=== PATIENT | female | born 1970 | race Caucasian/White ===

== ENCOUNTER 2021-12-02 22:08 | Inpatient (IN) | payer BC ==
[~2021-12-02] VITALS: Ht 167.6 cm; Wt 72.7 kg
[~2021-12-02 22:08] MED LIST: FAMO-128 PO
[2021-12-02] MEDS: diatr meglu/diatrizoate 30ml oral sol.-(3 dose) bottle PO SCH (23:41)
[2021-12-03] MEDS ORDERED: potassium CL 10mEq/100ml bag 100 ML IV PRN (01:25)
[2021-12-03] MEDS ORDERED: acetaminophen 325mg tablet PO PRN (01:25)
[2021-12-03] MEDS ORDERED: magnesium 4gm in 100ml NS 100 ML IV PRN (01:25)
[2021-12-03] MEDS ORDERED: magnesium 2GM in 50ml NS 50 ML IV PRN (01:25)
[2021-12-03] MEDS: normal saline 1000ml 1,000 ML IV SCH ×4 (01:42→21:34)
[2021-12-03] MEDS: morphine 2 MG/ML inj. syringe IV PRN ×4 (04:44→20:30)
--- NOTE | 2021-12-03 06:35 | NUR ---
Receieved report from Radha
[2021-12-03] MEDS: diatr meglu/diatrizoate 30ml oral sol.-(3 dose) bottle PO SCH ×2 (07:26→10:16)
[2021-12-03] MEDS: K and/or MAG REPLACEMENT MC SCH ×2 (08:00→20:00)
[2021-12-03] MEDS: piperacillin/tazo 3.375gm/50ml 50 ML IV SCH ×2 (08:00→16:21)
[2021-12-03] MEDS: famotidine 20mg tablet PO SCH ×2 (08:00→20:32)
--- NOTE | 2021-12-03 09:40 | NUR ---
Pt arrived via gurney from ED. Pt was soiled both bowl and bladder. Cleaned and oriented to room and POC. Herve TORRES had taken report on pt from ED but turned pt over to this RN. Visitors at bedside agitating pt who is verbally abusive. CT ready for pt last dose of prep given,.
[2021-12-03 10:00] VITALS: BP 133/84
[2021-12-03] MEDS ORDERED: temazepam 15mg capsule PO PRN (17:50)
[2021-12-03 18:00] VITALS: BP 131/70
--- NOTE | 2021-12-03 18:38 | NUR ---
Problems reprioritized. Patient report given, questions answered & plan of care reviewed with BRIAN Lu.
--- NOTE | 2021-12-03 18:56 | NUR ---
Patient in room ORTHO 4011. I have received report from JARROD TORRES and had the opportunity to ask questions and assume patient care.
--- NOTE | 2021-12-03 20:00 | NUR ---
KAVYA FROM LAB HERE TO DRAW PATIENT'S LABS. SEVERAL ATTEMPTS WERE MADE THROUGHOUT EARLY SHIFT WITHOUT SUCCESS. KAVYA ATTEMPTED X3 BUT WAS NOT ABLE TO GET BLOOD INTO THE TUBES. SHE WAS ABLE TO GET FLASH, BUT WOULD NOT FILL THE TUBES. WILL PASS THIS ON TO EARLY SHIFT TO NOTIFY
[2021-12-03] MEDS: apixaban 5mg tablet PO SCH (20:33)
[2021-12-03 22:00] VITALS: BP 163/86
--- NOTE | 2021-12-03 23:40 | NUR ---
PATIENT WAS INCONTINENT OF SMALL AMT UNFORMED STOOL, SKIN CARE AND PARTIAL LINEN CHANGE DONE. NOTED PATIENT IS VERY EDEMATOUS IN HER YI AREA. LABIA FIRM AND SWOLLEN, FEET AND UP LEGS INTO THIGHS AND BUTTOCKS EDEMATOUS ALSO. REPOSITIONED PATIENT ONTO HER L SIDE WITH A PILLOW UNDER HER ABDOMEN TO SUPPORT WITHOUT PULLING AND PILLOW BETWEEN LEGS FOR COMFORT. PATIENT STATED "COMFORTABLE" AND CLOSED HER EYES. TOO EARLY FOR PAIN MED AT THIS TIME, BUT PATIENT STATED SHE WOULD BE OKAY FOR A LITTLE WHILE UNTIL I'M ABLE TO ADMINISTER MORPHINE FOR DISCOMFORT. PATIENT'S BIGGEST COMPLAINT AT THIS TIME "I JUST FEEL SO FULL, THE MILK I HAD EARLIER MADE ME FEEL OVER FULL". C/O SOME INDIGESTION EARLIER BUT WAS ABLE TO GET RELIEF FROM ELEVATING HOB MORE AND GAVE PEPCID MORE TIME TO WORK FOR HER. I DID RECEIVE AN ORDER FOR MAALOX FROM DR. ANGELO IF NEEDED, BUT DID NOT NEED TO GIVE IT.
[2021-12-04] MEDS: piperacillin/tazo 3.375gm/50ml 50 ML IV SCH ×4 (00:12→23:56)
[2021-12-04] MEDS: morphine 2 MG/ML inj. syringe IV PRN ×4 (00:13→19:54)
[2021-12-04] MEDS: normal saline 1000ml 1,000 ML IV SCH ×3 (05:22→18:59)
--- NOTE | 2021-12-04 06:41 | NUR ---
Problems reprioritized. Patient report given, questions answered & plan of care reviewed with RUCHI Valverde
[2021-12-04 07:00] VITALS: BP 135/87
[2021-12-04] MEDS: K and/or MAG REPLACEMENT MC SCH ×2 (08:00→20:00)
[2021-12-04] MEDS: apixaban 5mg tablet PO SCH ×2 (08:17→19:41)
[2021-12-04] MEDS: famotidine 20mg tablet PO SCH ×2 (08:17→19:36)
--- NOTE | 2021-12-04 09:00 | NUR ---
Per Dante in lab, the patient has been stuck multiple times and they are still unable to get labs. I have talked to Dr Jamison and have passed on that getting picc RN to do an extended iv tomorrow may be the best idea for getting blood draws. Will pass on to NOC shift that patient will need extended iv in am.
[2021-12-04 10:37] VITALS: BP 138/84
[2021-12-04 15:00] VITALS: BP 140/98
[2021-12-04] MEDS ORDERED: metoprolol tartrate 25mg tablet PO SCH (15:37)
[2021-12-04] MEDS: metoprolol tartrate 50mg tablet PO ONE ×2 (15:40→15:59)
[2021-12-04 18:00] VITALS: BP 141/85
--- NOTE | 2021-12-04 18:51 | NUR ---
Patient in room ORTHO 4011. I have received report from RUCHI Valverde and had the opportunity to ask questions and assume patient care.
--- NOTE | 2021-12-04 18:55 | NUR ---
Tabitha TORRES given report and will be resuming care. Pt awake ate some dinner. at bedside.
[2021-12-04] MEDS: metoprolol tartrate 25mg tablet PO SCH (19:42)
[2021-12-04 22:00] VITALS: BP 137/84
[2021-12-05] MEDS: morphine 2 MG/ML inj. syringe IV PRN ×2 (01:49→22:06)
[2021-12-05 06:00] VITALS: BP 127/74
--- NOTE | 2021-12-05 06:34 | NUR ---
Patient in room ORTHO 4011. I have received report from christin keith and had the opportunity to ask questions and assume patient care.
--- NOTE | 2021-12-05 06:36 | NUR ---
Problems reprioritized. Patient report given, questions answered & plan of care reviewed with MERY TORRES.
[2021-12-05] MEDS: apixaban 5mg tablet PO SCH ×2 (07:19→22:01)
[2021-12-05] MEDS: piperacillin/tazo 3.375gm/50ml 50 ML IV SCH ×3 (07:20→23:10)
[2021-12-05] MEDS: famotidine 20mg tablet PO SCH ×2 (07:20→22:00)
[2021-12-05] MEDS: metoprolol tartrate 25mg tablet PO SCH ×2 (07:20→22:00)
--- NOTE | 2021-12-05 07:43 | NUR ---
Initial: Pt admitted w/ sepsis, anemia, and s/p Douglas and small bowel resection on 11/27 per EMR. Pt had apparently left AMA on prior admit and is now back. Currently on Heart healthy diet w/ mostly 0% intake of meals. Recommend changing to Low fiber diet given recent bowel surgery and also pt has NO cardiac hx in EMR, so a heart healthy diet is not indicated. Pt may also benefit from Timothy Smoothies to assist w/ wound healing. On prior visit pt was NPO from 11/27-12/01 and likely did not have adequate intake up until now, also had visible mild-moderate temporal/buccal wasting w/ severe sternal wasting evident on recent admit, and has moderate edema. Pt meets minimum criteria for malnutrition. LBM 12/04 noted to be diarrhea. Will continue to monitor. Recs: 1. Change to Low Fiber diet given recent bowel surgery; has no cardiac hx in EMR. 2. Timothy Smoothies BIDBD; pending MD verifcation 3. If unable to tolerate PO, consider nutrition support 4. Bowel care per MD 5. Consider routine MVI for wound healing/malnutrition 5. Scaled wts Addendum: 12/05/21 at [address] Amended: Links added.
[2021-12-05] MEDS: K and/or MAG REPLACEMENT MC SCH ×3 (08:00→20:00)
[2021-12-05 08:16] LABS: BASOPHILS # (AUTO) 0.1 X10'3 (0-0.2); BASOPHILS % (AUTO) 0.3 % (0-1); EOSINOPHILS # (AUTO) 0.2 X10'3 (0-0.9); HEMATOCRIT 25.2 % (35.0-45.0); LYMPHOCYTES # (AUTO) 2.2 X10'3 (1.1-4.8); LYMPHOCYTES % (AUTO) 9.1 % (21-51); MEAN CORPUSCULAR HEMOGLOBIN 27.5 PG (27.0-31.0); MEAN CORPUSCULAR HGB CONC 31.7 g/dL (33.0-36.5); MEAN CORPUSCULAR VOLUME 86.8 FL (78-98); MEAN PLATELET VOLUME 8.2 FL (7.4-10.4); MONOCYTES # (AUTO) 1.1 X10'3 (0-0.9); MONOCYTES % (AUTO) 4.4 % (2-12); NEUTROPHILS # (AUTO) 20.8 X10'3 (1.8-7.7); NEUTROPHILS % (AUTO) 85.2 % (42-75); PLATELET COUNT 569 X10'3 (140-440); RED BLOOD COUNT 2.91 X10'6 (4.20-5.60); RED CELL DISTRIBUTION WIDTH 27.2 % (11.5-14.5); WHITE BLOOD COUNT 24.4 X10'3 (4.5-11.0)
[2021-12-05 08:17] LABS: ALANINE AMINOTRANSFERASE 14 U/L (12-78); ALBUMIN 0.7 G/DL (3.4-5.0); ALBUMIN/GLOBULIN RATIO 0.2 (1.1-1.5); ALKALINE PHOSPHATASE 103 IU/L (46-116); ANION GAP 7 (8-16); ASPARTATE AMINO TRANSFERASE 28 U/L (10-37); BILIRUBIN,TOTAL 0.4 MG/DL (0.1-1.0); BLOOD UREA NITROGEN 11 MG/DL (7-18); BUN/CREATININE RATIO 16.9 (6.6-38.0); CALCIUM 7.2 MG/DL (8.5-10.1); CHLORIDE 113 MMOL/L (99-107); CREATININE 0.65 MG/DL (0.40-0.90); GLUCOSE 88 MG/DL (70-104); SODIUM 143 MMOL/L (135-145); TOTAL CARBON DIOXIDE 23.5 MMOL/L (24-32); TOTAL PROTEIN 4.7 G/DL (6.4-8.2); eGFR > 90 ML/MIN
[2021-12-05 08:26] LABS: POTASSIUM 2.9 MMOL/L (3.5-5.1)
[2021-12-05 09:56] VITALS: BP 120/66
[2021-12-05] MEDS ORDERED: furosemide 10 MG/1 ML 10ml inj IV ONE ×2 (10:10→11:10)
--- NOTE | 2021-12-05 10:53 | NUR ---
Page Sent PAGER ID: [phone] MESSAGE: [id number] Cleve. pt K is 2.9 do you stillw ant me to give Lasix??? I am going to replace per protocol. please let me know. osman [id number]
[2021-12-05] MEDS ORDERED: magnesium 4gm in 100ml NS 100 ML IV PRN (10:55)
[2021-12-05] MEDS ORDERED: potassium CL 10mEq/100ml bag 100 ML IV PRN (10:55)
[2021-12-05] MEDS ORDERED: magnesium Cl slow-release 64mg tablet PO PRN (10:55)
[2021-12-05] MEDS ORDERED: magnesium 2GM in 50ml NS 50 ML IV PRN (10:55)
[2021-12-05] MEDS ORDERED: POTASSIUM BICARB 20meq eff tab 20 MEQ TABLET.EFF PO PRN (10:55)
--- NOTE | 2021-12-05 11:37 | NUR ---
Page Sent PAGER ID: [phone] MESSAGE: [phone] b Cleve, do you want pt to still receive 60 mg one dose lasix with her K of 2.9? I will replace K and I will wait to hear from you about giving Lasix. osman [id number]
--- NOTE | 2021-12-05 11:46 | NUR ---
Page Sent PAGER ID: [phone] MESSAGE: [phone] b Cleve, do you want pt to still receive 60 mg one dose lasix with her K of 2.9? I will replace K and I will wait to hear from you about giving Lasix. osman [id number]
[2021-12-05] MEDS: POTASSIUM BICARB 20meq eff tab 20 MEQ TABLET.EFF PO PRN ×3 (13:09→22:54)
[2021-12-05] MEDS: JUVEN Smoothie Arginine/Glut./Ca2+Bmb (Juven 19.3pkt) 240ml cup PO SCH (17:35)
--- NOTE | 2021-12-05 17:38 | NUR ---
Page Sent PAGER ID: [phone] MESSAGE: [phone] Cleve, pt hr was 120s at vitals check. osman [id number]
[2021-12-05 18:00] VITALS: BP 105/73
--- NOTE | 2021-12-05 18:10 | NUR ---
Problems reprioritized. Patient report given, questions answered & plan of care reviewed with kerrie keith.
[2021-12-05 22:00] VITALS: BP 116/60
--- NOTE | 2021-12-05 22:17 | NUR ---
MESSAGE: [id number] MARSHALLROSE RAMSEY 51 ABD PAIN. HAVING HARD TIME BREATHING. REQUIRING 5L FROM RA. HR 130. CHEST XRAY? CAN SHE HAVE BREATHING TX? C/O CHEST PAIN. EKG-SINUS TACHY. DO YOU WANT TROPONIN? THANK YOU. 1879 SILVINA
[2021-12-05] MEDS ORDERED: ipratropium/albuterol 3ml nebule NEB PRN (22:20)
[2021-12-05 23:10] LABS: ABG BASE EXCESS 3.5 mmol/L (-2.0-2.0); ABG OXYGEN SATURATION 91.3 % (94-97); ABG PCO2 (T) 30.1 mmHg (32.0-45.0); ABG PO2 (T) 59.6 mmHg (75.0-100.0); FCOHb 1.2 % (0.0-3.9); FLOW 5 L/min; FMetHb 0.3 % (0.0-1.5); FO2Hb 89.9 % (94-97); PATIENT TEMPERATURE 36.7; TOTAL HEMOGLOBIN 7.8 G/dl (12.0-16.0)
[2021-12-05] MEDS: ondansetron/PF 4mg/2ml inj IV PRN (23:10)
[2021-12-05] MEDS ORDERED: furosemide 40mg/4ml inj IV ONE (23:20)
--- NOTE | 2021-12-05 23:24 | NUR ---
INFROMED GARIBAY OF ABG RESULT. RT SUGGESTED TO PUT NON-REBREATHER. AND MD OKED. HER LUNG SOUND CONGESTED. ORDERED 40MG LASIX NOW.
[2021-12-05 23:30] VITALS: BP 132/51
--- NOTE | 2021-12-05 23:50 | NUR ---
MESSAGE: [phone] AZAELNayana ROSE 51 TROPONIN IS 3190 NOW. HR STILL HIGH 132. DID EKG. CAN I SHOW IT TO YOU? PLEASE TELL ME THE LOCATION. THANK YOU 2049 SILVINA
[2021-12-06] VITALS (21 sets, daily range): BP systolic 88–126; BP diastolic 50–70
--- NOTE | 2021-12-06 | NUR ---
PT WAS NOT FINISH POTASSIUM DRINK.
[2021-12-06] MEDS ORDERED: heparin 10,000 units/1 ML INJ IV ONE (00:45)
[2021-12-06] MEDS ORDERED: heparin 10,000 units/1 ML INJ IV PRN (00:45)
[2021-12-06 00:48] LABS: EOSINOPHILS # (AUTO) 0.1 X10'3 (0-0.9); HEMOGLOBIN 9.2 g/dl (12.0-16.0); LYMPHOCYTES % (AUTO) 5.2 % (21-51); MONOCYTES # (AUTO) 0.9 X10'3 (0-0.9)
[2021-12-06 00:50] LABS: BASOPHILS # (AUTO) 0.1 X10'3 (0-0.2); BASOPHILS % (AUTO) 0.3 % (0-1); EOSINOPHILS % (AUTO) 0.2 % (0-6); HEMATOCRIT 28.6 % (35.0-45.0); LYMPHOCYTES # (AUTO) 1.7 X10'3 (1.1-4.8); MEAN CORPUSCULAR HEMOGLOBIN 27.4 PG (27.0-31.0); MEAN CORPUSCULAR HGB CONC 32.2 g/dL (33.0-36.5); MEAN CORPUSCULAR VOLUME 85.1 FL (78-98); MEAN PLATELET VOLUME 7.8 FL (7.4-10.4); MONOCYTES % (AUTO) 2.7 % (2-12); NEUTROPHILS # (AUTO) 30.4 X10'3 (1.8-7.7); NEUTROPHILS % (AUTO) 91.6 % (42-75); PLATELET COUNT 698 X10'3 (140-440); RED BLOOD COUNT 3.36 X10'6 (4.20-5.60); RED CELL DISTRIBUTION WIDTH 27.6 % (11.5-14.5)
--- NOTE | 2021-12-06 00:53 | NUR ---
pharmacy caes called and inform that pt took eliquis tonight so not to start heparin drip till 0400. and no bolus. Pharmacy will place order starting at 0400.
[2021-12-06 00:58] LABS: WHITE BLOOD COUNT 33.2 X10'3 (4.5-11.0)
[2021-12-06 01:05] LABS: ALANINE AMINOTRANSFERASE 18 U/L (12-78); ALBUMIN 0.8 G/DL (3.4-5.0); ALBUMIN/GLOBULIN RATIO 0.2 (1.1-1.5); ALKALINE PHOSPHATASE 124 IU/L (46-116); ANION GAP 9 (8-16); ASPARTATE AMINO TRANSFERASE 27 U/L (10-37); BILIRUBIN,TOTAL 0.5 MG/DL (0.1-1.0); BLOOD UREA NITROGEN 10 MG/DL (7-18); BUN/CREATININE RATIO 13.5 (6.6-38.0); CALCIUM 7.5 MG/DL (8.5-10.1); CHLORIDE 107 MMOL/L (99-107); CREATININE 0.74 MG/DL (0.40-0.90); GLUCOSE 117 MG/DL (70-104); SODIUM 141 MMOL/L (135-145); TOTAL CARBON DIOXIDE 25.1 MMOL/L (24-32); TOTAL PROTEIN 5.9 G/DL (6.4-8.2); eGFR 83 ML/MIN
[2021-12-06 01:09] LABS: POTASSIUM 2.9 MMOL/L (3.5-5.1)
--- NOTE | 2021-12-06 01:16 | NUR ---
MESSAGE: [id number] liliane Santana. critical WBC 33.2. She is getting Zosyn. blood culture is already ordered. thank you. [phone] Annabelle
[2021-12-06 01:21] LABS: TOTAL CELLS COUNTED 100
[2021-12-06 01:22] LABS: ANISOCYTOSIS 3+; HYPOCHROMASIA 3+; MICROCYTOSIS 1+; PLATELET ESTIMATE INCREASED; TARGET CELLS 2+
[2021-12-06 01:23] LABS: APTT 29 SECONDS (22-32)
--- NOTE | 2021-12-06 02:56 | NUR ---
MESSAGE: [id number] ROSE SIBLEY 51 CRITICAL TROPONIN 2704 NOW. CAN I SHOW EKG? PLEASE TELL ME YOUR LOCATION. THANK YOU. 6711 SILVINA
[2021-12-06] MEDS ORDERED: HEPARIN SOD,PORK IN 0.45% NACL 250 ML IV SCH (04:00)
[2021-12-06] MEDS: POTASSIUM BICARB 20meq eff tab 20 MEQ TABLET.EFF PO PRN (05:29)
[2021-12-06 06:48] LABS: BASOPHILS # (AUTO) 0.1 X10'3 (0-0.2); BASOPHILS % (AUTO) 0.4 % (0-1); EOSINOPHILS % (AUTO) 0.1 % (0-6); LYMPHOCYTES # (AUTO) 2.2 X10'3 (1.1-4.8); LYMPHOCYTES % (AUTO) 7.9 % (21-51); MEAN CORPUSCULAR HEMOGLOBIN 27.8 PG (27.0-31.0); MEAN CORPUSCULAR HGB CONC 32.3 g/dL (33.0-36.5); MEAN CORPUSCULAR VOLUME 85.9 FL (78-98); MONOCYTES % (AUTO) 3.4 % (2-12); NEUTROPHILS % (AUTO) 88.2 % (42-75); PLATELET COUNT 544 X10'3 (140-440); RED BLOOD COUNT 2.35 X10'6 (4.20-5.60); RED CELL DISTRIBUTION WIDTH 27.5 % (11.5-14.5)
[2021-12-06 07:10] LABS: WHITE BLOOD COUNT 28.4 X10'3 (4.5-11.0)
[2021-12-06 07:11] LABS: HEMATOCRIT 20.1 % (35.0-45.0); HEMOGLOBIN 6.5 g/dl (12.0-16.0)
[2021-12-06] MEDS: JUVEN Smoothie Arginine/Glut./Ca2+Bmb (Juven 19.3pkt) 240ml cup PO SCH ×2 (07:30→18:03)
--- NOTE | 2021-12-06 07:40 | NUR ---
Pt looks very poorly this morning. Received report from night charge Mary at 0620 re: events last night. Pt now with SBP 88, HR 100 sinus rhythm, on venti mask at 40%. mild SOB. Pt weak, "tired" and moaning but denies pain. Pale. HH now 6.10/01. K 2.9. troponin 2141. moist cough, lungs coarse crackles Dr Paul notified of last nights events, current status. Will call rapid response per his request. He is on his way up to patient room.
--- NOTE | 2021-12-06 07:48 | NUR ---
per charge nurse she is paging dr to let him know about pt status. her low k, needing blood, and having low bp with desats
[2021-12-06] MEDS ORDERED: furosemide 40mg/4ml inj IV SCH (08:00)
[2021-12-06] MEDS: metoprolol tartrate 25mg tablet PO SCH ×2 (08:00→20:53)
[2021-12-06] MEDS: K and/or MAG REPLACEMENT MC SCH ×4 (08:00→20:56)
[2021-12-06 08:29] LABS: ANISOCYTOSIS 3+; NUCLEATED RED BLOOD CELLS 2 /100WBC (0-0); PLATELET ESTIMATE INCREASED; TARGET CELLS 2+; TOTAL CELLS COUNTED 100
[2021-12-06 08:30] LABS: HYPOCHROMASIA 1+
[2021-12-06] MEDS ORDERED: PERFLUTREN PROTEIN-A MICROSPHR (Optison) 0.22 MG/ML 3ML VIAL IV ONE (08:30)
[2021-12-06] MEDS ORDERED: iohexol 350MG/ML 100ml bottle IV ONE (08:31)
--- NOTE | 2021-12-06 08:58 | NUR ---
PAGER ID: [phone] MESSAGE: [phone] chichi Poon is allergic to iv contrast. they are unable to do CT. osman [id number]
[2021-12-06] MEDS: piperacillin/tazo 3.375gm/50ml 50 ML IV SCH (09:53)
[2021-12-06] MEDS: famotidine 20mg tablet PO SCH ×2 (09:53→20:53)
--- NOTE | 2021-12-06 10:15 | NUR ---
Problems reprioritized. Patient report given, questions answered & plan of care reviewed with kisha keith.
--- NOTE | 2021-12-06 10:38 | NUR ---
taken by wound care yesterday Addendum: 12/06/21 at 1039 by Christian Marr RN Amended: Links added.
--- NOTE | 2021-12-06 11:07 | NUR ---
pts daughter called and she was upset, i talked to my director he said she can look up the number to [facility] if she wishes to call them and he is aware of the situation as well as my charge nurse, she was transferred down to the nursing supervisor dairy sanitation. supervisor dairy sanitation said she had talked to her and thinks she got things figured out with her. i discussed with the pt and her that is at the bedside, what her daughter had expressed to me, the pt expressed that she was receiving great care and appreciated everything that we have been doing for her and the stated he agreed. she stated she just wants to get better and be able to go home. they both understood what was going on with her and that she is getting transferred to the ICU to receive further care.
--- NOTE | 2021-12-06 11:52 | NUR ---
Page Sent PAGER ID: [phone] MESSAGE: [phone] b Cleve pt troponin 2039, pt is now in ICU
--- NOTE | 2021-12-06 12:12 | NUR ---
pt was transferred to icu, nurse jeancarlos was aware of pt needing blood and K, along with the management of the heparin. report already given.
--- NOTE | 2021-12-06 18:35 | NUR ---
I have received report and assumed care of pt. Pt is a 51 year old female who had recent surgery for adhesions, went AMA on 11/27 only to return a few days later with abdominal pain, pt has a history of methamphetamine abuse, on 12/06 pt was a rapid response d/t increase in o2 requirements, Pt resting in bed, at bedside, assessment complete, pt incont of stool, pt cleaned, barrier cream applied, bilateral heal protectors applied as pt has dark goyo soft heals,
[2021-12-06] MEDS: furosemide 40mg/4ml inj IV SCH (20:52)
[2021-12-06] MEDS: ondansetron/PF 4mg/2ml inj IV PRN (20:52)
[2021-12-06] MEDS: pantoprazole 40MG/NS 100ML BAG 100 ML IV SCH (20:56)
[2021-12-06 21:35] LABS: BASOPHILS # (AUTO) 0.2 X10'3 (0-0.2); BASOPHILS % (AUTO) 0.8 % (0-1); EOSINOPHILS # (AUTO) 0.2 X10'3 (0-0.9); EOSINOPHILS % (AUTO) 0.8 % (0-6); HEMATOCRIT 27.8 % (35.0-45.0); HEMOGLOBIN 9.1 g/dl (12.0-16.0); LYMPHOCYTES # (AUTO) 2.3 X10'3 (1.1-4.8); LYMPHOCYTES % (AUTO) 9.7 % (21-51); MEAN CORPUSCULAR HEMOGLOBIN 28.3 PG (27.0-31.0); MEAN CORPUSCULAR HGB CONC 32.7 g/dL (33.0-36.5); MEAN CORPUSCULAR VOLUME 86.5 FL (78-98); MEAN PLATELET VOLUME 8.2 FL (7.4-10.4); MONOCYTES # (AUTO) 1.1 X10'3 (0-0.9); MONOCYTES % (AUTO) 4.6 % (2-12); NEUTROPHILS # (AUTO) 19.9 X10'3 (1.8-7.7); NEUTROPHILS % (AUTO) 84.1 % (42-75); PLATELET COUNT 489 X10'3 (140-440); RED BLOOD COUNT 3.21 X10'6 (4.20-5.60); RED CELL DISTRIBUTION WIDTH 21.9 % (11.5-14.5); WHITE BLOOD COUNT 23.6 X10'3 (4.5-11.0)
[2021-12-06 22:21] LABS: TOTAL CELLS COUNTED 100
[2021-12-06 22:22] LABS: ANISOCYTOSIS 3+; HYPOCHROMASIA 2+; PLATELET ESTIMATE INCREASED; TARGET CELLS 2+
[2021-12-06 22:23] LABS: LARGE PLATELETS FEW; POLYCHROMASIA 1+
[2021-12-06 22:24] LABS: SMUDGE CELLS 2+
[2021-12-07] VITALS (24 sets, daily range): BP systolic 90–126; BP diastolic 52–72
[2021-12-07] MEDS: piperacillin/tazo 3.375gm/50ml 50 ML IV SCH ×3 (01:47→17:01)
[2021-12-07] MEDS: furosemide 40mg/4ml inj IV SCH ×3 (04:00→17:01)
[2021-12-07 06:10] LABS: BASOPHILS # (AUTO) 0.1 X10'3 (0-0.2); BASOPHILS % (AUTO) 0.2 % (0-1); EOSINOPHILS # (AUTO) 0.1 X10'3 (0-0.9); EOSINOPHILS % (AUTO) 0.4 % (0-6); HEMATOCRIT 26.2 % (35.0-45.0); LYMPHOCYTES # (AUTO) 2.4 X10'3 (1.1-4.8); LYMPHOCYTES % (AUTO) 8.8 % (21-51); MEAN CORPUSCULAR HGB CONC 34.3 g/dL (33.0-36.5); MEAN CORPUSCULAR VOLUME 84.4 FL (78-98); MEAN PLATELET VOLUME 8.3 FL (7.4-10.4); MONOCYTES # (AUTO) 1.2 X10'3 (0-0.9); MONOCYTES % (AUTO) 4.3 % (2-12); NEUTROPHILS # (AUTO) 23.8 X10'3 (1.8-7.7); NEUTROPHILS % (AUTO) 86.3 % (42-75); PLATELET COUNT 524 X10'3 (140-440); RED BLOOD COUNT 3.11 X10'6 (4.20-5.60); RED CELL DISTRIBUTION WIDTH 21.3 % (11.5-14.5)
--- NOTE | 2021-12-07 06:12 | NUR ---
report given to rec rn plan of care reviewed
[2021-12-07 06:22] LABS: WHITE BLOOD COUNT 27.6 X10'3 (4.5-11.0)
[2021-12-07 06:23] LABS: ALANINE AMINOTRANSFERASE 8 U/L (12-78); ALBUMIN 0.6 G/DL (3.4-5.0); ALBUMIN/GLOBULIN RATIO 0.1 (1.1-1.5); ALKALINE PHOSPHATASE 83 IU/L (46-116); ANION GAP 4 (8-16); ASPARTATE AMINO TRANSFERASE 21 U/L (10-37); BILIRUBIN,TOTAL 0.5 MG/DL (0.1-1.0); BLOOD UREA NITROGEN 9 MG/DL (7-18); BUN/CREATININE RATIO 13.8 (6.6-38.0); CALCIUM 7.2 MG/DL (8.5-10.1); CHLORIDE 107 MMOL/L (99-107); CREATININE 0.65 MG/DL (0.40-0.90); GLUCOSE 94 MG/DL (70-104); SODIUM 141 MMOL/L (135-145); TOTAL CARBON DIOXIDE 30.1 MMOL/L (24-32); TOTAL PROTEIN 4.7 G/DL (6.4-8.2); eGFR > 90 ML/MIN
[2021-12-07 06:26] LABS: POTASSIUM 2.8 MMOL/L (3.5-5.1)
[2021-12-07] MEDS: K and/or MAG REPLACEMENT MC SCH ×3 (07:00→20:55)
[2021-12-07] MEDS: JUVEN Smoothie Arginine/Glut./Ca2+Bmb (Juven 19.3pkt) 240ml cup PO SCH ×2 (08:11→17:30)
[2021-12-07] MEDS: POTASSIUM BICARB 20meq eff tab 20 MEQ TABLET.EFF PO PRN ×2 (08:35→21:08)
[2021-12-07] MEDS: metoprolol tartrate 25mg tablet PO SCH ×2 (08:35→20:00)
[2021-12-07] MEDS: famotidine 20mg tablet PO SCH (08:35)
[2021-12-07] MEDS: pantoprazole 40MG/NS 100ML BAG 100 ML IV SCH ×2 (08:35→21:08)
[2021-12-07] MEDS: morphine 2 MG/ML inj. syringe IV PRN (08:48)
[2021-12-07 09:58] LABS: ANISOCYTOSIS 3+; PLATELET ESTIMATE INCREASED; TARGET CELLS 2+; TOTAL CELLS COUNTED 100
[2021-12-07 10:25] LABS: CHOL/HDL RATIO 4.1 (0.00-4.99); CHOLESTEROL 57 MG/DL (0-200); HDL CHOLESTEROL 14 MG/DL (35-60); LDL CHOLESTEROL 28 MG/DL (50-100); TRIGLYCERIDES 88 MG/DL (20-135)
[2021-12-07 13:03] LABS: HEMATOCRIT 35.9 % (35.0-45.0); HEMOGLOBIN 11.5 g/dl (12.0-16.0); MEAN CORPUSCULAR HEMOGLOBIN 28.2 PG (27.0-31.0); MEAN CORPUSCULAR VOLUME 88.2 FL (78-98); MEAN PLATELET VOLUME 7.9 FL (7.4-10.4); PLATELET COUNT 532 X10'3 (140-440); RED BLOOD COUNT 4.07 X10'6 (4.20-5.60); RED CELL DISTRIBUTION WIDTH 22.7 % (11.5-14.5)
[2021-12-07 13:07] LABS: WHITE BLOOD COUNT 32.2 X10'3 (4.5-11.0)
--- NOTE | 2021-12-07 13:14 | NUR ---
PRESSURE ULCER EDUCATION: DEFINITION: A pressure ulcer is an area of skin that breaks down when you stay in one position too long. The constant pressure against the skin reduces the blood flow to that area and the affected tissue dies. CAUSES: "Being bedridden or in a wheelchair "Fragile skin "Having a chronic condition, such as diabetes or vascular disease "Inability to move certain parts of your body without assistance "Older age "Incontinence of urine or stool SYMPTOMS: "A reddened area that DOES NOT turn white when pressed on - this can be the beginning of a pressure ulcer "A blister, deep sore or a crater - these can be advanced pressure ulcers FIRST AID: "Relieve the pressure on this area "Keep the area clean and dry "Call your primary doctor if you see any of the above symptoms "DO NOT massage the area "DO NOT use a donut shaped or ring shaped pillow- these actually interfere with the blood flow and cause complications PREVENTION: "Check for pressure ulcers everyday "Change position at least every two hours to relieve pressure "Use items that help relieve pressure- pillows, sheepskin, foam padding, and powders. "Keep skin clean and dry "Eat healthy well balanced meals "Exercise daily IF YOU SEE ANY OF THESE SYMPTOMS WHILE IN THE HOSPITAL - TELL YOUR NURSE IMMEDIATELY. IF YOU SEE ANY OF THESE SYMPTOMS WHILE AT HOME OR HAVE ANY QUESTIONS OR CONCERNS ABOUT PRESSURE ULCERS - CALL YOUR PRIMARY DOCTOR IMMEDIATELY. Addendum: 12/07/21 at 1315 by Tabitha Victoria LVN Amended: Links added.
--- NOTE | 2021-12-07 18:30 | NUR ---
I have received report and assumed care of pt, pt resting in bed rise and fall of chest cavity equile and symmetrical, pt denies needs at this time, BCNA in place for pts safety.
[2021-12-07] MEDS: enoxaparin 40mg/0.4ml syringe SUBCUT SCH (21:07)
[2021-12-07] MEDS: NYSTATIN CREAM - 30GM TUBE TP SCH (21:08)
[2021-12-07] MEDS: ondansetron/PF 4mg/2ml inj IV PRN (21:16)
[2021-12-07 23:18] LABS: HEMOGLOBIN 9.5 g/dl (12.0-16.0)
[2021-12-07 23:19] LABS: MEAN CORPUSCULAR HEMOGLOBIN 28.5 PG (27.0-31.0); PLATELET COUNT 597 X10'3 (140-440); RED BLOOD COUNT 3.33 X10'6 (4.20-5.60); RED CELL DISTRIBUTION WIDTH 21.6 % (11.5-14.5); WHITE BLOOD COUNT 23.2 X10'3 (4.5-11.0)
[2021-12-07 23:34] LABS: ALANINE AMINOTRANSFERASE 9 U/L (12-78); ALBUMIN 0.7 G/DL (3.4-5.0); ALBUMIN/GLOBULIN RATIO 0.2 (1.1-1.5); ALKALINE PHOSPHATASE 94 IU/L (46-116); ANION GAP 3 (8-16); ASPARTATE AMINO TRANSFERASE 17 U/L (10-37); BILIRUBIN,TOTAL 0.4 MG/DL (0.1-1.0); BLOOD UREA NITROGEN 8 MG/DL (7-18); BUN/CREATININE RATIO 13.8 (6.6-38.0); CALCIUM 7.1 MG/DL (8.5-10.1); CHLORIDE 101 MMOL/L (99-107); CREATININE 0.58 MG/DL (0.40-0.90); GLUCOSE 126 MG/DL (70-104); POTASSIUM 3.1 MMOL/L (3.5-5.1); SODIUM 137 MMOL/L (135-145); TOTAL CARBON DIOXIDE 33.4 MMOL/L (24-32); eGFR > 90 ML/MIN
[2021-12-08] VITALS (18 sets, daily range): BP systolic 94–129; BP diastolic 50–72
[2021-12-08] MEDS: furosemide 40mg/4ml inj IV SCH
--- NOTE | 2021-12-08 03:00 | NUR ---
report given to rec rn plan of care reviewed
--- NOTE | 2021-12-08 03:00 | NUR ---
Patient in room CICU 2006. I have received report from Tierney Torres RN and had the opportunity to ask questions and assume patient care. Pt c/o nausea, Zofran given per orders.
[2021-12-08] MEDS: ondansetron/PF 4mg/2ml inj IV PRN (03:10)
[2021-12-08] MEDS: POTASSIUM BICARB 20meq eff tab 20 MEQ TABLET.EFF PO PRN (03:10)
[2021-12-08] MEDS: piperacillin/tazo 3.375gm/50ml 50 ML IV SCH ×3 (03:10→16:09)
[2021-12-08 06:11] LABS: BASOPHILS % (AUTO) 0.2 % (0-1); EOSINOPHILS # (AUTO) 0.2 X10'3 (0-0.9); HEMATOCRIT 26.9 % (35.0-45.0); LYMPHOCYTES # (AUTO) 1.7 X10'3 (1.1-4.8); LYMPHOCYTES % (AUTO) 8.1 % (21-51); MEAN CORPUSCULAR HEMOGLOBIN 28.2 PG (27.0-31.0); MEAN CORPUSCULAR HGB CONC 33.4 g/dL (33.0-36.5); MEAN CORPUSCULAR VOLUME 84.4 FL (78-98); MEAN PLATELET VOLUME 8.2 FL (7.4-10.4); MONOCYTES # (AUTO) 1.1 X10'3 (0-0.9); MONOCYTES % (AUTO) 5.1 % (2-12); NEUTROPHILS # (AUTO) 17.9 X10'3 (1.8-7.7); NEUTROPHILS % (AUTO) 85.6 % (42-75); PLATELET COUNT 607 X10'3 (140-440); RED BLOOD COUNT 3.19 X10'6 (4.20-5.60); RED CELL DISTRIBUTION WIDTH 21.4 % (11.5-14.5); WHITE BLOOD COUNT 20.9 X10'3 (4.5-11.0)
[2021-12-08 06:28] LABS: ALANINE AMINOTRANSFERASE 8 U/L (12-78); ALBUMIN 0.6 G/DL (3.4-5.0); ALBUMIN/GLOBULIN RATIO 0.1 (1.1-1.5); ALKALINE PHOSPHATASE 87 IU/L (46-116); ANION GAP 4 (8-16); ASPARTATE AMINO TRANSFERASE 19 U/L (10-37); BILIRUBIN,TOTAL 0.4 MG/DL (0.1-1.0); BLOOD UREA NITROGEN 10 MG/DL (7-18); BUN/CREATININE RATIO 16.4 (6.6-38.0); CALCIUM 7.4 MG/DL (8.5-10.1); CHLORIDE 102 MMOL/L (99-107); CREATININE 0.61 MG/DL (0.40-0.90); GLUCOSE 97 MG/DL (70-104); POTASSIUM 3.4 MMOL/L (3.5-5.1); SODIUM 141 MMOL/L (135-145); TOTAL CARBON DIOXIDE 34.8 MMOL/L (24-32); TOTAL PROTEIN 4.7 G/DL (6.4-8.2); eGFR > 90 ML/MIN
[2021-12-08 06:42] LABS: ANISOCYTOSIS 3+; LARGE PLATELETS FEW; PLATELET ESTIMATE INCREASED
[2021-12-08 06:43] LABS: TEAR DROP CELLS FEW
[2021-12-08] MEDS: JUVEN Smoothie Arginine/Glut./Ca2+Bmb (Juven 19.3pkt) 240ml cup PO SCH ×2 (07:30→17:33)
[2021-12-08] MEDS: furosemide 20 MG/2 ML vial IV SCH ×2 (07:42→16:09)
[2021-12-08] MEDS: pantoprazole 40MG/NS 100ML BAG 100 ML IV SCH ×2 (07:43→22:06)
[2021-12-08] MEDS: metoprolol tartrate 25mg tablet PO SCH (07:43)
[2021-12-08] MEDS: NYSTATIN CREAM - 30GM TUBE TP SCH (07:44)
[2021-12-08] MEDS: K and/or MAG REPLACEMENT MC SCH ×2 (07:45→19:47)
--- NOTE | 2021-12-08 08:00 | NUR ---
MD Visit Dr. Hernandez to see. Orders received. Pt notified of possible transfer today. Up to bedside commode with NA assistance - min assist needed to commode. Breakfast provided.
--- NOTE | 2021-12-08 11:33 | NUR ---
F/u 12/08: Pt transferred to ICU DX CHF exacerbation and pulmonary edema now to return to floor today per bucket chucker at rounds. Advanced to Na-restricted/low residue diet yesterday PO ~25-50% avg fluctuating meals and Timothy smoothie BID partially meeting needs. Pt drinking as much of Timothy smoothie as can tolerate w/ family bringing food in from outside today as well per RN. LBM 12/08 diarrhea past few days per RN; bucket chucker agreeable to probiotic. Will monitor for further PO trends and nutrition intervention needs this admit. Recs: 1. Continue Na-restricted/low residue diet per MD 2. Timothy Smoothies BIDBD; encourage PO meals/ONS 3. probiotic per MD; consider anti-diarrheal if diarrhea persists 4. Consider routine MVI for wound healing/malnutrition 5. weekly scaled wts Addendum: 12/08/21 at [address] Amended: Links added.
[2021-12-08 13:08] LABS: HEMATOCRIT 29.3 % (35.0-45.0); HEMOGLOBIN 9.7 g/dl (12.0-16.0); MEAN CORPUSCULAR VOLUME 84.6 FL (78-98); PLATELET COUNT 667 X10'3 (140-440); RED BLOOD COUNT 3.46 X10'6 (4.20-5.60); RED CELL DISTRIBUTION WIDTH 21.5 % (11.5-14.5); WHITE BLOOD COUNT 23.6 X10'3 (4.5-11.0)
[2021-12-08] MEDS: morphine 2 MG/ML inj. syringe IV PRN ×2 (13:30→23:29)
--- NOTE | 2021-12-08 13:36 | NUR ---
Abd Dressing/Catheter Urine catheter removed & pt tolerated removal well. Abd dressing removed, cleaned and reapplies per WOC RN instructions. Abd incision w/approx 2" dehisced are at lower half. Catherine in place above and below dehisced area. Incision w/out s/s of infection, redness or drainage. Skin around dressing was irritated particularly above pubic area. C/o pain at the end of the procedure as minor pressure was required to redress site.
--- NOTE | 2021-12-08 15:38 | NUR ---
RECD REPORT FROM DAVIS TORRES
--- NOTE | 2021-12-08 17:40 | NUR ---
agree with physical assessment done in ICU except for changes made Addendum: 12/08/21 at 1740 by Anita Washington RN Amended: Links added.
--- NOTE | 2021-12-08 18:33 | NUR ---
Problems reprioritized. Patient report given, questions answered & plan of care reviewed with alanna mondragon rn.
[2021-12-08] MEDS: lactobacillus rhamnosus 10,000 MMU CELLS/CAPSULE PO SCH (19:42)
[2021-12-08] MEDS: enoxaparin 40mg/0.4ml syringe SUBCUT SCH (19:44)
[2021-12-08 21:17] LABS: HEMOGLOBIN 8.9 g/dl (12.0-16.0); MEAN PLATELET VOLUME 8.1 FL (7.4-10.4)
[2021-12-08 21:18] LABS: HEMATOCRIT 26.8 % (35.0-45.0); MEAN CORPUSCULAR HEMOGLOBIN 28.5 PG (27.0-31.0); MEAN CORPUSCULAR HGB CONC 33.3 g/dL (33.0-36.5); MEAN CORPUSCULAR VOLUME 85.7 FL (78-98); PLATELET COUNT 654 X10'3 (140-440); RED BLOOD COUNT 3.13 X10'6 (4.20-5.60); RED CELL DISTRIBUTION WIDTH 21.9 % (11.5-14.5); WHITE BLOOD COUNT 16.6 X10'3 (4.5-11.0)
[2021-12-08] MEDS: sodium ferric gluc complex inj 125 MG in normal saline 100ml IV soln 100 ML IV SCH (22:00)
[2021-12-09] MEDS: NYSTATIN CREAM - 30GM TUBE TP SCH ×3 (00:43→20:00)
[2021-12-09] MEDS: piperacillin/tazo 3.375gm/50ml 50 ML IV SCH ×4 (00:44→23:56)
[2021-12-09] MEDS: furosemide 20 MG/2 ML vial IV SCH ×4 (00:44→23:55)
[2021-12-09 02:00] VITALS: BP 101/75
[2021-12-09 06:00] VITALS: BP 121/70
--- NOTE | 2021-12-09 06:50 | NUR ---
Patient in room PCU 3017. I have received report from Giovanna Heredia RN and had the opportunity to ask questions and assume patient care.
[2021-12-09 06:51] LABS: BASOPHILS # (AUTO) 0.1 X10'3 (0-0.2); BASOPHILS % (AUTO) 0.5 % (0-1); EOSINOPHILS # (AUTO) 0.3 X10'3 (0-0.9); EOSINOPHILS % (AUTO) 1.7 % (0-6); HEMATOCRIT 26.5 % (35.0-45.0); HEMOGLOBIN 8.8 g/dl (12.0-16.0); LYMPHOCYTES # (AUTO) 2.4 X10'3 (1.1-4.8); LYMPHOCYTES % (AUTO) 16.4 % (21-51); MEAN CORPUSCULAR HEMOGLOBIN 28.7 PG (27.0-31.0); MEAN CORPUSCULAR HGB CONC 33.3 g/dL (33.0-36.5); MEAN CORPUSCULAR VOLUME 86.4 FL (78-98); MEAN PLATELET VOLUME 8.3 FL (7.4-10.4); MONOCYTES # (AUTO) 0.8 X10'3 (0-0.9); MONOCYTES % (AUTO) 5.4 % (2-12); NEUTROPHILS # (AUTO) 11.3 X10'3 (1.8-7.7); PLATELET COUNT 650 X10'3 (140-440); RED BLOOD COUNT 3.06 X10'6 (4.20-5.60); RED CELL DISTRIBUTION WIDTH 21.3 % (11.5-14.5); WHITE BLOOD COUNT 14.8 X10'3 (4.5-11.0)
[2021-12-09] MEDS: JUVEN Smoothie Arginine/Glut./Ca2+Bmb (Juven 19.3pkt) 240ml cup PO SCH ×2 (07:30→08:00)
[2021-12-09 07:45] LABS: ALBUMIN 0.8 G/DL (3.4-5.0); ALBUMIN/GLOBULIN RATIO 0.2 (1.1-1.5); ALKALINE PHOSPHATASE 84 IU/L (46-116); ANION GAP 5 (8-16); ASPARTATE AMINO TRANSFERASE 22 U/L (10-37); BILIRUBIN,TOTAL 0.3 MG/DL (0.1-1.0); BLOOD UREA NITROGEN 10 MG/DL (7-18); BUN/CREATININE RATIO 15.6 (6.6-38.0); CALCIUM 7.3 MG/DL (8.5-10.1); CHLORIDE 100 MMOL/L (99-107); CREATININE 0.64 MG/DL (0.40-0.90); FERRITIN 686 NG/ML (8-252); GLUCOSE 88 MG/DL (70-104); MAGNESIUM 1.1 MG/DL (1.5-2.4); PHOSPHORUS 3.1 MG/DL (2.3-4.5); SODIUM 140 MMOL/L (135-145); TOTAL CARBON DIOXIDE 34.6 MMOL/L (24-32); eGFR > 90 ML/MIN
[2021-12-09 08:10] LABS: ALANINE AMINOTRANSFERASE 7 U/L (12-78)
[2021-12-09 08:31] LABS: POTASSIUM 2.9 MMOL/L (3.5-5.1)
[2021-12-09 08:45] LABS: PLATELET ESTIMATE INCREASED
[2021-12-09 08:46] LABS: ANISOCYTOSIS 3+; HYPOCHROMASIA 1+; STOMATOCYTES 2+
[2021-12-09] MEDS ORDERED: magnesium 2GM in 50ml NS 50 ML IV PRN (08:50)
[2021-12-09] MEDS ORDERED: potassium Cl 20 mEq SR tablet PO PRN (08:50)
[2021-12-09] MEDS ORDERED: magnesium 4gm in 100ml NS 100 ML IV PRN (08:50)
[2021-12-09] MEDS ORDERED: potassium CL 10mEq/100ml bag 100 ML IV PRN (08:50)
[2021-12-09] MEDS: K and/or MAG REPLACEMENT MC SCH ×2 (08:54→20:00)
[2021-12-09 10:00] VITALS: BP 112/62
[2021-12-09] MEDS: magnesium Cl slow-release 64mg tablet PO PRN ×2 (10:32→20:03)
[2021-12-09] MEDS: buPROPion SR 150mg tablet PO SCH (10:32)
[2021-12-09] MEDS: lactobacillus rhamnosus 10,000 MMU CELLS/CAPSULE PO SCH ×2 (10:32→19:56)
[2021-12-09] MEDS: potassium Cl 20 mEq SR tablet PO PRN ×3 (10:33→20:02)
[2021-12-09] MEDS: metoprolol succinate 25mg (24-HOUR) SR. Tablet PO SCH (10:33)
[2021-12-09] MEDS: losartan 25mg tablet PO SCH (10:33)
[2021-12-09] MEDS: pantoprazole 40MG/NS 100ML BAG 100 ML IV SCH (10:34)
[2021-12-09] MEDS: sodium ferric gluc complex inj 125 MG in normal saline 100ml IV soln 100 ML IV SCH (11:04)
[2021-12-09 14:00] VITALS: BP 94/51
[2021-12-09 18:00] VITALS: BP 113/65
--- NOTE | 2021-12-09 18:23 | NUR ---
Patient in room PCU 3017. I have received report from janie keith and had the opportunity to ask questions and assume patient care.
--- NOTE | 2021-12-09 18:45 | NUR ---
Problems reprioritized. Patient report given, questions answered & plan of care reviewed with BRIAN Polanco.
[2021-12-09] MEDS: enoxaparin 40mg/0.4ml syringe SUBCUT SCH ×2 (19:56→20:00)
[2021-12-09] MEDS: pantoprazole 40mg Tablet.DR PO SCH (19:57)
[2021-12-09 22:00] VITALS: BP 100/52
[2021-12-10 01:23] LABS: ALANINE AMINOTRANSFERASE 10 U/L (12-78); ALBUMIN 0.7 G/DL (3.4-5.0); ALBUMIN/GLOBULIN RATIO 0.2 (1.1-1.5); ALKALINE PHOSPHATASE 86 IU/L (46-116); ANION GAP 3 (8-16); ASPARTATE AMINO TRANSFERASE 15 U/L (10-37); BILIRUBIN,TOTAL 0.2 MG/DL (0.1-1.0); BLOOD UREA NITROGEN 11 MG/DL (7-18); BUN/CREATININE RATIO 13.9 (6.6-38.0); CALCIUM 7.4 MG/DL (8.5-10.1); CHLORIDE 103 MMOL/L (99-107); CREATININE 0.79 MG/DL (0.40-0.90); GLUCOSE 120 MG/DL (70-104); MAGNESIUM 1.1 MG/DL (1.5-2.4); PHOSPHORUS 2.6 MG/DL (2.3-4.5); POTASSIUM 4.4 MMOL/L (3.5-5.1); SODIUM 140 MMOL/L (135-145); TOTAL CARBON DIOXIDE 34.3 MMOL/L (24-32); TOTAL PROTEIN 4.8 G/DL (6.4-8.2); eGFR 77 ML/MIN
--- NOTE | 2021-12-10 02:00 | NUR ---
pt refused 0200 vitals
[2021-12-10] MEDS: mag hydrox/Alum hydrox/simeth 30ml oral suspension PO PRN ×2 (05:33→09:50)
[2021-12-10 06:00] VITALS: BP 124/76
--- NOTE | 2021-12-10 06:24 | NUR ---
Problems reprioritized. Patient report given, questions answered & plan of care reviewed with janie rn.
--- NOTE | 2021-12-10 06:50 | NUR ---
Patient in room PCU 3017. I have received report from BRIAN Polanco and had the opportunity to ask questions and assume patient care.
[2021-12-10] MEDS: JUVEN Smoothie Arginine/Glut./Ca2+Bmb (Juven 19.3pkt) 240ml cup PO SCH ×2 (07:50→17:39)
[2021-12-10] MEDS: K and/or MAG REPLACEMENT MC SCH ×2 (07:51→20:00)
[2021-12-10] MEDS: metoprolol succinate 25mg (24-HOUR) SR. Tablet PO SCH (09:44)
[2021-12-10] MEDS: losartan 25mg tablet PO SCH (09:44)
[2021-12-10] MEDS ORDERED: acetaminophen 325mg tablet PO PRN (09:45)
[2021-12-10] MEDS: buPROPion SR 150mg tablet PO SCH (09:50)
[2021-12-10] MEDS: pantoprazole 40mg Tablet.DR PO SCH ×2 (09:51→20:36)
[2021-12-10] MEDS: lactobacillus rhamnosus 10,000 MMU CELLS/CAPSULE PO SCH ×2 (09:51→20:36)
[2021-12-10] MEDS: furosemide 20 MG/2 ML vial IV SCH ×2 (09:51→17:19)
[2021-12-10] MEDS: piperacillin/tazo 3.375gm/50ml 50 ML IV SCH ×2 (09:55→17:19)
[2021-12-10] MEDS: sodium ferric gluc complex inj 125 MG in normal saline 100ml IV soln 100 ML IV SCH (09:56)
[2021-12-10] MEDS: magnesium Cl slow-release 64mg tablet PO PRN ×2 (10:13→20:36)
[2021-12-10 10:53] LABS: BASOPHILS # (AUTO) 0.1 X10'3 (0-0.2); EOSINOPHILS # (AUTO) 0.1 X10'3 (0-0.9); EOSINOPHILS % (AUTO) 0.8 % (0-6); LYMPHOCYTES # (AUTO) 2.3 X10'3 (1.1-4.8)
[2021-12-10 10:54] LABS: BASOPHILS % (AUTO) 0.4 % (0-1); HEMOGLOBIN 9.9 g/dl (12.0-16.0); LYMPHOCYTES % (AUTO) 15.8 % (21-51); MEAN CORPUSCULAR HEMOGLOBIN 28.6 PG (27.0-31.0); MEAN CORPUSCULAR HGB CONC 32.9 g/dL (33.0-36.5); MEAN CORPUSCULAR VOLUME 86.8 FL (78-98); MEAN PLATELET VOLUME 7.6 FL (7.4-10.4); MONOCYTES # (AUTO) 0.6 X10'3 (0-0.9); MONOCYTES % (AUTO) 4.2 % (2-12); NEUTROPHILS # (AUTO) 11.6 X10'3 (1.8-7.7); NEUTROPHILS % (AUTO) 78.8 % (42-75); PLATELET COUNT 794 X10'3 (140-440); RED BLOOD COUNT 3.46 X10'6 (4.20-5.60); WHITE BLOOD COUNT 14.7 X10'3 (4.5-11.0)
[2021-12-10 10:56] LABS: % IRON SATURATION 68 % (11-46); IRON 65 UG/DL (49-151); TOTAL IRON BINDING CAPACITY 95 UG/DL (259-388)
[2021-12-10 11:00] VITALS: BP 139/83
[2021-12-10 11:11] LABS: ANISOCYTOSIS 3+; PLATELET ESTIMATE INCREASED; POIKILOCYTOSIS FEW; POLYCHROMASIA 1+; TARGET CELLS 1+
[2021-12-10 11:28] LABS: OCCULT BLOOD STOOL NEGATIVE (Neg)
[2021-12-10 14:00] VITALS: BP 150/91
[2021-12-10 18:00] VITALS: BP 124/74
--- NOTE | 2021-12-10 18:15 | NUR ---
Patient in room PCU 3017. I have received report from janie keith and had the opportunity to ask questions and assume patient care.
--- NOTE | 2021-12-10 18:30 | NUR ---
Problems reprioritized. Patient report given, questions answered & plan of care reviewed with BRIAN Polanco.
[2021-12-10 19:52] LABS: HEMATOCRIT 28.9 % (35.0-45.0); HEMOGLOBIN 9.5 g/dl (12.0-16.0); MEAN CORPUSCULAR HEMOGLOBIN 28.7 PG (27.0-31.0); MEAN CORPUSCULAR HGB CONC 32.9 g/dL (33.0-36.5); MEAN CORPUSCULAR VOLUME 87.3 FL (78-98); MEAN PLATELET VOLUME 7.6 FL (7.4-10.4); PLATELET COUNT 781 X10'3 (140-440); RED BLOOD COUNT 3.31 X10'6 (4.20-5.60); RED CELL DISTRIBUTION WIDTH 21.1 % (11.5-14.5); WHITE BLOOD COUNT 13.7 X10'3 (4.5-11.0)
[2021-12-10] MEDS ORDERED: apixaban 5mg tablet PO SCH (20:00)
[2021-12-10] MEDS: enoxaparin 40mg/0.4ml syringe SUBCUT SCH (20:00)
[2021-12-10 22:00] VITALS: BP 130/78
[2021-12-11] MEDS: piperacillin/tazo 3.375gm/50ml 50 ML IV SCH ×3 (00:08→16:13)
[2021-12-11] MEDS: furosemide 20 MG/2 ML vial IV SCH ×3 (00:08→16:12)
[2021-12-11 02:00] VITALS: BP 137/90
--- NOTE | 2021-12-11 05:20 | NUR ---
AGREE WITH [employer]MER LAW CLERK PHYSICAL ASSESSMENT CHARTED
[2021-12-11 06:00] VITALS: BP 148/87
--- NOTE | 2021-12-11 06:10 | NUR ---
Problems reprioritized. Patient report given, questions answered & plan of care reviewed with janie rn.
--- NOTE | 2021-12-11 06:10 | NUR ---
Patient in room PCU 3017. I have received report from BRIAN Polanco and had the opportunity to ask questions and assume patient care.
[2021-12-11 06:43] LABS: ALANINE AMINOTRANSFERASE 11 U/L (12-78); ALBUMIN/GLOBULIN RATIO 0.2 (1.1-1.5); ALKALINE PHOSPHATASE 112 IU/L (46-116); ANION GAP 5 (8-16); ASPARTATE AMINO TRANSFERASE 26 U/L (10-37); BILIRUBIN,TOTAL 0.4 MG/DL (0.1-1.0); BLOOD UREA NITROGEN 8 MG/DL (7-18); BUN/CREATININE RATIO 11.4 (6.6-38.0); CALCIUM 8.2 MG/DL (8.5-10.1); CHLORIDE 101 MMOL/L (99-107); GLUCOSE 97 MG/DL (70-104); MAGNESIUM 1.7 MG/DL (1.5-2.4); PHOSPHORUS 2.6 MG/DL (2.3-4.5); POTASSIUM 3.8 MMOL/L (3.5-5.1); SODIUM 138 MMOL/L (135-145); TOTAL CARBON DIOXIDE 32.1 MMOL/L (24-32); TOTAL PROTEIN 5.9 G/DL (6.4-8.2); eGFR 89 ML/MIN
[2021-12-11 06:49] LABS: EOSINOPHILS # (AUTO) 0.2 X10'3 (0-0.9); HEMOGLOBIN 9.9 g/dl (12.0-16.0); MONOCYTES # (AUTO) 0.8 X10'3 (0-0.9); NEUTROPHILS % (AUTO) 81.3 % (42-75)
[2021-12-11 06:53] LABS: BASOPHILS # (AUTO) 0.2 X10'3 (0-0.2); BASOPHILS % (AUTO) 0.9 % (0-1); HEMATOCRIT 30.4 % (35.0-45.0); MEAN CORPUSCULAR HEMOGLOBIN 28.1 PG (27.0-31.0); MEAN CORPUSCULAR HGB CONC 32.6 g/dL (33.0-36.5); MEAN CORPUSCULAR VOLUME 86.1 FL (78-98); MEAN PLATELET VOLUME 7.8 FL (7.4-10.4); MONOCYTES % (AUTO) 4.8 % (2-12); NEUTROPHILS # (AUTO) 13.3 X10'3 (1.8-7.7); PLATELET COUNT 808 X10'3 (140-440); RED BLOOD COUNT 3.53 X10'6 (4.20-5.60); RED CELL DISTRIBUTION WIDTH 20.3 % (11.5-14.5); WHITE BLOOD COUNT 16.4 X10'3 (4.5-11.0)
[2021-12-11] MEDS: lactose-reduced food (Ensure Enlive) - 237ml bottle PO SCH ×4 (07:27→18:09)
[2021-12-11] MEDS: JUVEN Smoothie Arginine/Glut./Ca2+Bmb (Juven 19.3pkt) 240ml cup PO SCH (07:27)
[2021-12-11] MEDS: K and/or MAG REPLACEMENT MC SCH ×2 (07:40→20:00)
[2021-12-11 09:40] LABS: ANISOCYTOSIS 3+; PLATELET ESTIMATE INCREASED; STOMATOCYTES 2+; TARGET CELLS FEW
--- NOTE | 2021-12-11 09:41 | NUR ---
Reassessment; Pt continues on Sodium restricted/low residue diet w/ avg intake 43% of meals partially meeting needs. Pt has refused Timothy Smoothies since 12/08 per documentation. Noted Ensure Enlive TID has been ordered this morning, pending PO of that. If poor PO persists, pt may benefit from supplemental TF to assist w/ nutrient needs. LBM 12/10. Will continue to monitor. Recs: 1. Continue Na-restricted/low residue diet per MD 2. Timothy Smoothies BIDBD; Ensure Enlive TID encourage PO meals/ONS 3. probiotic per MD; consider anti-diarrheal if diarrhea persists 4. Consider routine MVI for wound healing/malnutrition 5. weekly scaled wts 6. IF PO does not improve, consider Supplemental TF if within POC Addendum: 12/11/21 at [address] Amended: Links added.
[2021-12-11 10:00] VITALS: BP 120/75
[2021-12-11] MEDS: losartan 25mg tablet PO SCH (10:06)
[2021-12-11] MEDS: buPROPion SR 150mg tablet PO SCH (10:06)
[2021-12-11] MEDS: lactobacillus rhamnosus 10,000 MMU CELLS/CAPSULE PO SCH ×2 (10:06→20:00)
[2021-12-11] MEDS: pantoprazole 40mg Tablet.DR PO SCH ×2 (10:06→20:00)
[2021-12-11] MEDS: metoprolol succinate 25mg (24-HOUR) SR. Tablet PO SCH (10:07)
[2021-12-11] MEDS: sodium ferric gluc complex inj 125 MG in normal saline 100ml IV soln 100 ML IV SCH (10:23)
[2021-12-11 14:00] VITALS: BP 109/89
--- NOTE | 2021-12-11 17:00 | NUR ---
Dr Antonio states pt is signed off by surgery.
--- NOTE | 2021-12-11 18:10 | NUR ---
Problems reprioritized. Patient report given, questions answered & plan of care reviewed with BRIAN Dodson.
--- NOTE | 2021-12-11 18:30 | NUR ---
Patient in room PCU 3017. I have received report from ANTHONY and had the opportunity to ask questions and assume patient care.
[2021-12-11 19:00] VITALS: BP 104/56
--- NOTE | 2021-12-11 19:00 | NUR ---
PT REFUSED DRESSING CHANGE. CURRENT DRESSING CDI. CHANGED DURING AM SHIFT. Addendum: 12/12/21 at 0119 by Ivory Grijalva RN Amended: Links added.
[2021-12-11] MEDS: enoxaparin 40mg/0.4ml syringe SUBCUT SCH (20:00)
[2021-12-11 22:00] VITALS: BP 117/70
[2021-12-12] MEDS: furosemide 20 MG/2 ML vial IV SCH ×2 (00:05→07:44)
[2021-12-12] MEDS: piperacillin/tazo 3.375gm/50ml 50 ML IV SCH ×2 (00:05→07:44)
--- NOTE | 2021-12-12 06:20 | NUR ---
Problems reprioritized. Patient report given, questions answered & plan of care reviewed with JARROD.
--- NOTE | 2021-12-12 06:44 | NUR ---
Patient in room PCU 3017. I have received report from LIZETH Connolly and had the opportunity to ask questions and assume patient care. Addendum: 12/12/21 at 0646 by Kayla Amaral RN BRIAN Dodson
[2021-12-12 06:56] LABS: EOSINOPHILS # (AUTO) 0.4 X10'3 (0-0.9); HEMATOCRIT 30.4 % (35.0-45.0); HEMOGLOBIN 9.8 g/dl (12.0-16.0); MONOCYTES # (AUTO) 0.9 X10'3 (0-0.9)
[2021-12-12 06:58] LABS: BASOPHILS # (AUTO) 0.1 X10'3 (0-0.2); BASOPHILS % (AUTO) 1.1 % (0-1); EOSINOPHILS % (AUTO) 2.6 % (0-6); LYMPHOCYTES # (AUTO) 2.6 X10'3 (1.1-4.8); LYMPHOCYTES % (AUTO) 18.6 % (21-51); MEAN CORPUSCULAR HEMOGLOBIN 28.1 PG (27.0-31.0); MEAN CORPUSCULAR HGB CONC 32.2 g/dL (33.0-36.5); MEAN CORPUSCULAR VOLUME 87.4 FL (78-98); MEAN PLATELET VOLUME 7.7 FL (7.4-10.4); MONOCYTES % (AUTO) 6.3 % (2-12); NEUTROPHILS # (AUTO) 9.9 X10'3 (1.8-7.7); NEUTROPHILS % (AUTO) 71.4 % (42-75); PLATELET COUNT 829 X10'3 (140-440); RED BLOOD COUNT 3.48 X10'6 (4.20-5.60); RED CELL DISTRIBUTION WIDTH 20.7 % (11.5-14.5); WHITE BLOOD COUNT 13.9 X10'3 (4.5-11.0)
[2021-12-12 07:28] LABS: ALANINE AMINOTRANSFERASE 8 U/L (12-78); ALBUMIN 0.9 G/DL (3.4-5.0); ALBUMIN/GLOBULIN RATIO 0.2 (1.1-1.5); ALKALINE PHOSPHATASE 107 IU/L (46-116); ANION GAP 5 (8-16); ASPARTATE AMINO TRANSFERASE 20 U/L (10-37); BILIRUBIN,TOTAL 0.2 MG/DL (0.1-1.0); BLOOD UREA NITROGEN 9 MG/DL (7-18); BUN/CREATININE RATIO 12.5 (6.6-38.0); CALCIUM 8.2 MG/DL (8.5-10.1); CHLORIDE 103 MMOL/L (99-107); CREATININE 0.72 MG/DL (0.40-0.90); GLUCOSE 81 MG/DL (70-104); MAGNESIUM 1.9 MG/DL (1.5-2.4); PHOSPHORUS 3.3 MG/DL (2.3-4.5); POTASSIUM 3.9 MMOL/L (3.5-5.1); SODIUM 140 MMOL/L (135-145); TOTAL CARBON DIOXIDE 31.7 MMOL/L (24-32); TOTAL PROTEIN 5.6 G/DL (6.4-8.2); eGFR 86 ML/MIN
[2021-12-12] MEDS: metoprolol succinate 25mg (24-HOUR) SR. Tablet PO SCH (07:44)
[2021-12-12] MEDS: lactobacillus rhamnosus 10,000 MMU CELLS/CAPSULE PO SCH (07:44)
[2021-12-12] MEDS: pantoprazole 40mg Tablet.DR PO SCH (07:44)
[2021-12-12] MEDS: buPROPion SR 150mg tablet PO SCH (07:44)
[2021-12-12 07:45] VITALS: BP 107/72
[2021-12-12 07:48] VITALS: BP_SYST 107
[2021-12-12] MEDS: losartan 25mg tablet PO SCH (07:48)
[2021-12-12] MEDS: K and/or MAG REPLACEMENT MC SCH (08:00)
[2021-12-12 08:25] LABS: ANISOCYTOSIS 3+; GIANT PLATELET FEW; LARGE PLATELETS FEW; PLATELET ESTIMATE INCREASED
[2021-12-12 08:26] LABS: TARGET CELLS FEW
[2021-12-12] MEDS: lactose-reduced food (Ensure Enlive) - 237ml bottle PO SCH (08:55)
[2021-12-12] MEDS: sodium ferric gluc complex inj 125 MG in normal saline 100ml IV soln 100 ML IV SCH (08:55)
[2021-12-12] MEDS ORDERED: METO-395 PO (10:58)
[2021-12-12] MEDS ORDERED: AMOX-580 PO (10:58)
[2021-12-12] MEDS ORDERED: PANT40TA54 PO (10:58)
[2021-12-12] MEDS ORDERED: ASCO-134 PO (10:58)
[2021-12-12] MEDS ORDERED: LACT1CAP26 PO (10:58)
[2021-12-12] MEDS ORDERED: FURO-150 PO (10:58)
[2021-12-12] MEDS ORDERED: FERR325T28 PO (10:58)
[2021-12-12] MEDS ORDERED: ASPI-1265 PO (10:58)
[2021-12-12] MEDS ORDERED: ALBU8.5H17 INH (10:58)
[2021-12-12] MEDS ORDERED: LOSA25TA41 PO (10:58)
[2021-12-12] MEDS ORDERED: POTA10TA37 PO (10:58)
== END 2021-12-12 12:50 | disposition home or self-care (01) | DRG 871 ==
LOC: ER 22:10 → ED HOLD 12-03 01:28 → ORTHO 4S 12-03 10:12 → CICU 2S 12-06 11:10 → PCU 3S 12-08 16:23
PROVIDERS: ADMIT Internal Medicine; ATTEND Internal Medicine
PROC: 30233N1 Transfusion of Nonautologous Red Blood Cells into Peripheral Vein, Percutaneous Approach (ICD-10-PCS; 2021-12-06)
PROC: 5A0935A Assistance with Respiratory Ventilation, Less than 24 Consecutive Hours, High Flow/Velocity Cannula (ICD-10-PCS; principal; 2021-12-07)
PROC: 5A0935A Assistance with Respiratory Ventilation, Less than 24 Consecutive Hours, High Flow/Velocity Cannula (ICD-10-PCS; 2021-12-08)
DX: A41.9 Sepsis, unspecified organism (principal); I21.4 Non-ST elevation (NSTEMI) myocardial infarction; I50.23 Acute on chronic systolic (congestive) heart failure; J96.01 Acute respiratory failure with hypoxia; K56.609 Unspecified intestinal obstruction, unspecified as to partial versus complete obstruction; N17.9 Acute kidney failure, unspecified; D62 Acute posthemorrhagic anemia; Z20.822 Contact with and (suspected) exposure to COVID-19; D50.9 Iron deficiency anemia, unspecified; K21.9 Gastro-esophageal reflux disease without esophagitis; D63.8 Anemia in other chronic diseases classified elsewhere; E83.51 Hypocalcemia; R00.0 Tachycardia, unspecified; E87.6 Hypokalemia; F15.10 Other stimulant abuse, uncomplicated; F17.200 Nicotine dependence, unspecified, uncomplicated; Z90.81 Acquired absence of spleen; Z91.041 Radiographic dye allergy status; Z91.19 Patient's noncompliance with other medical treatment and regimen; Z79.899 Other long term (current) drug therapy; Z71.51 Drug abuse counseling and surveillance of drug abuser; Z71.6 Tobacco abuse counseling
CPT/HCPCS: 36415; 36430; 36600; 71045; 74176; 80053; 80061; 82272; 82728; 82803; 82948; 83540; 83550; 83735; 83880; 84100; 84484; 85007; 85008; 85018; 85025; 85027; 85610; 85730; 86885; 86900; 86901; 86920; 87040; 87081; 87635; 93005; 93306; 94640; 94760; 97110; 97116; 97161; 97530; 99285; A4615; A4649; A6196; A6213; A6250; A6253; A6258; A6446; A6449; C1758; C9113; G0378; J1644; J1650; J1940; J2270; J2405; J2543; J2916; J3480; J3490; J7030; J7040; P9016; Q9963; Q9967